=== PATIENT | male | born 1980 | race Caucasian/White ===

== ENCOUNTER 2022-12-18 13:56 | Emergency (ER) | payer BC, SELFPAY ==
[2022-12-18] VITALS (14 sets, daily range): BP systolic 109–137; BP diastolic 54–97; PULSE 66–97; RESP 15–24; TEMP 36.5; O2SAT 96–100; BMI 31.6
[2022-12-18] MEDS: methylPREDNISolone 125 MG/2 ML VIAL IV (14:08)
[2022-12-18] MEDS: FAMOTIDINE 20 MG/2 ML VIAL IV (14:08)
--- NOTE | 2022-12-18 15:29 | PC.NURSE ---
ambulatory to and from [facility] without issue, -dizziness
--- NOTE | 2022-12-18 16:15 | ED_ITS ---
HPI - Allergic Reaction General Chief complaint: Allergic Reaction Stated complaint: Allergic Reaction Time Seen by Provider: 12/18/22 13:59 Source: patient and EMS Mode of arrival: EMS History of Present Illness HPI narrative: Patient is a healthy 42-year-old male who presents today after a bee sting. He was in his car he saw the be and got stung on the right side of his neck. He got very sweaty lightheaded had some difficulty swallowing. EMS found him to be extremely erythematous all over his body with a blood pressure in the 90s. He was given epinephrine IM 50 mg of Benadryl and a L of normal saline. He has no lip swelling or tongue swelling he feels like he is breathing. He is quite shaky on exam but speaking in full sentences. He has had no prior allergic reactions in the past. No history of anaphylaxis. Related Data Previous Rx's Medication Instructions Recorded epinephrine 0.3 mg/0.3 mL 0.3 mg (0.3 mL) IM Q5-15M PRN 12/18/22 injection, auto-injector anaphylaxis #2 ea Patient History Social History Smoking Status: Current every day smoker Smoking Status: Current every day smoker Exam Initial Vital Signs Initial Vital Signs: Vital Signs Pulse Rate 86 12/18/22 13:58 Blood Pressure 132/60 12/18/22 13:58 Pulse Oximetry 96 12/18/22 13:58 GENERAL: Alert 42-year-old male shaking and in no acute distress. HEENT: Head atraumatic,EOMI, pupils reactive, face symmetric, moist mucous membranes my CARDIOVASCULAR: Mild tachycardic RESPIRATORY: Breath sounds equal bilaterally, no wheezes rales or rhonchi. ABDOMEN: Soft, nontender. Normoactive bowel sounds all 4 quadrants. No guarding or rebound. EXTREMITIES: Normal range of motion, no clubbing or edema. Neurovascularly intact NEUROLOGICAL: Alert and oriented x4.Normal gait and speech. SKIN: Blanchable erythema Course Orders Ordered: Discontinued Medications Famotidine (Famotidine 20 Mg/2 Ml Vial) 20 mg IV NOW CHRISTOPHE Last Admin: 12/18/22 14:08 Dose: 20 mg Documented By: AICHA Methylprednisolone (Methylprednisolone 125 Mg/2 Ml Vial) 125 mg IV NOW ONE Stop: 12/18/22 14:00 Last Admin: 12/18/22 14:08 Dose: 125 mg Documented By: KF Vital Signs Vital signs: Vital Signs - 8 hr 12/18/22 13:58 12/18/22 13:58 12/18/22 14:00 Temperature Pulse Rate 86 78 Respiratory Rate 17 Blood Pressure 132/60 Pulse Oximetry 96 99 Oxygen Delivery Method 12/18/22 14:05 12/18/22 14:05 12/18/22 14:09 Temperature 97.7 F Pulse Rate 78 83 Respiratory Rate 20 20 Blood Pressure 120/59 L 130/60 Pulse Oximetry 98 96 Oxygen Delivery Method Room Air 12/18/22 14:16 12/18/22 14:16 12/18/22 14:30 Temperature Pulse Rate 73 74 Respiratory Rate 22 24 Blood Pressure 137/54 L Pulse Oximetry 100 100 Oxygen Delivery Method 12/18/22 14:31 12/18/22 14:31 12/18/22 14:46 Temperature Pulse Rate 70 Respiratory Rate 23 Blood Pressure 133/97 H 127/54 L Pulse Oximetry 96 Oxygen Delivery Method 12/18/22 14:46 12/18/22 15:00 12/18/22 15:00 Temperature Pulse Rate 97 H 66 Respiratory Rate 22 19 Blood Pressure 110/54 L Pulse Oximetry 100 100 Oxygen Delivery Method 12/18/22 15:25 12/18/22 15:25 12/18/22 15:30 Temperature Pulse Rate 68 Respiratory Rate 15 Blood Pressure 114/69 109/65 Pulse Oximetry 99 Oxygen Delivery Method 12/18/22 15:30 12/18/22 15:45 12/18/22 15:45 Temperature Pulse Rate 69 82 Respiratory Rate 19 22 Blood Pressure 116/66 Pulse Oximetry 98 98 Oxygen Delivery Method 12/18/22 16:00 12/18/22 16:00 12/18/22 16:15 Temperature Pulse Rate 74 Respiratory Rate 19 Blood Pressure 120/67 116/67 Pulse Oximetry 98 Oxygen Delivery Method 12/18/22 16:15 Temperature Pulse Rate 83 Respiratory Rate 17 Blood Pressure Pulse Oximetry 98 Oxygen Delivery Method MDM - Allergic Reaction MDM Narrative Medical decision making narrative: Patient 42-year-old male presents today concern for anaphylactic reaction. Reports of hypotension in the field which have now been resolved. He is quite shaky erythematous. No sign of airway obstruction. Is given Pepcid and Solu- Medrol. He is monitored in the ED for couple of hours without any recurrence. He is able to eat without any difficulty. At this time no need for any further monitoring imaging or workup Discharge Plan Departure Patient Disposition: Home Clinical Impression: Anaphylactic reaction Instructions: DI for Anaphylaxis Activity Restrictions/Additional Instructions: *You have been diagnosed with anaphylactic reaction *What to do: At this time please carry an epinephrine pen *Continue to take medications as directed Epinephrine use as directed if needed for anaphylactic reactions *Follow up with your primary care provider in 2-3 days or call [phone] *Return to ER if you should have increased difficulty breathing lip swelling tongue swelling difficulty swallowing dizziness lightheadedness or any new, worsening or concerning symptoms Prescriptions: New epinephrine 0.3 mg/0.3 mL auto-injector 0.3 mg IM Q5-15M PRN (Reason: anaphylaxis) Qty: 2 0RF Rx Instructions: do not exceed 3 doses per episode Stand Alone Forms: Patient Portal/API
== END 2022-12-18 16:33 | disposition home or self-care (01) ==
PROVIDERS: Emergency Provider Emergency Medicine
DX: T63.441A Toxic effect of venom of bees, accidental (unintentional), initial encounter (principal)
CPT/HCPCS: 96374; 96375; 99283; J2930